=== PATIENT | male | born 1995 | race African-American/Black ===

== ENCOUNTER 2020-11-22 08:19 | Emergency (ER) | payer OTHER ==
[~2020-11-22] VITALS: Ht 185.4 cm; Wt 68.0 kg
[2020-11-22 08:22] VITALS: BP 119/78
== END 2020-11-22 09:31 | disposition home or self-care (01) ==
LOC: ER 08:19
DX: S86.912A Strain of unspecified muscle(s) and tendon(s) at lower leg level, left leg, initial encounter (principal); S86.911A Strain of unspecified muscle(s) and tendon(s) at lower leg level, right leg, initial encounter; V43.62XA Car passenger injured in collision with other type car in traffic accident, initial encounter; Y93.89 Activity, other specified; Y92.488 Other paved roadways as the place of occurrence of the external cause; Y99.8 Other external cause status